=== PATIENT | male | born 1995 | race Caucasian/White ===

== ENCOUNTER 2016-09-20 23:48 | Emergency (ER) | payer OTHER ==
[~2016-09-20] VITALS: Ht 177.8 cm; Wt 81.4 kg
[2016-09-21] MEDS ORDERED: KETOROLAC 30 MG/1 ML ONE (00:16)
[2016-09-21] MEDS ORDERED: KETOROLAC 30 MG/1 ML IM ONE (00:30)
[2016-09-21] MEDS ORDERED: BACITRACIN ZINC OINT 500U/GM, 0.9 GM ONE (00:51)
[2016-09-21] MEDS ORDERED: COCAINE TOPICAL SOLN 4%, 4ML ONE (01:08)
[2016-09-21] MEDS ORDERED: COCAINE TOPICAL SOLN 4%, 4ML TP ONE (01:30)
[2016-09-21 01:58] VITALS: BP 144/77
== END 2016-09-21 01:59 | disposition home or self-care (01) ==
LOC: ED 09-21 00:02
DX: S02.2XXA Fracture of nasal bones, initial encounter for closed fracture (principal); Y04.8XXA Assault by other bodily force, initial encounter; Y93.89 Activity, other specified; Y92.89 Other specified places as the place of occurrence of the external cause; Y99.8 Other external cause status
CPT/HCPCS: 70160; 96372; 99284; J1885

== ENCOUNTER 2016-09-27 06:23 | Emergency (ER) | payer SELFPAY ==
[~2016-09-27] VITALS: Ht 180.3 cm; Wt 79.3 kg
[2016-09-27 06:25] VITALS: BP 128/86
[2016-09-27] MEDS ORDERED: OXYcodone/APAP 5/325MG TABLET PO ONE (07:00)
[2016-09-27] MEDS ORDERED: OXYcodone/APAP 5/325MG TABLET ONE (07:22)
== END 2016-09-27 07:51 | disposition home or self-care (01) ==
LOC: ED 07:30
DX: S02.2XXA Fracture of nasal bones, initial encounter for closed fracture (principal); Y04.0XXA Assault by unarmed brawl or fight, initial encounter; Y93.89 Activity, other specified; Y92.89 Other specified places as the place of occurrence of the external cause; Y99.8 Other external cause status; Z87.891 Personal history of nicotine dependence
CPT/HCPCS: 70486; 99284

== ENCOUNTER 2016-12-28 02:28 | Emergency (ER) | payer MEDICAID ==
[~2016-12-28] VITALS: Ht 180.3 cm; Wt 78.5 kg
[2016-12-28] MEDS ORDERED: LORazepam 1MG TABLET ONE (03:19)
[2016-12-28] MEDS ORDERED: LORazepam 1MG TABLET PO ONE (03:30)
[2016-12-28 03:37] VITALS: BP 144/87
== END 2016-12-28 03:38 | disposition home or self-care (01) ==
LOC: ED 03:17
DX: L90.5 Scar conditions and fibrosis of skin (principal); F15.10 Other stimulant abuse, uncomplicated
CPT/HCPCS: 93005; 99283

== ENCOUNTER 2017-02-06 05:44 | Emergency (ER) | payer MEDICAID ==
[~2017-02-06] VITALS: Ht 177.8 cm; Wt 78.0 kg
[2017-02-06 05:45] VITALS: BP 126/80
== END 2017-02-06 06:44 | disposition home or self-care (01) ==
LOC: ED 06:25
DX: M79.672 Pain in left foot (principal); K64.4 Residual hemorrhoidal skin tags
CPT/HCPCS: 99283

== ENCOUNTER 2017-04-20 12:11 | Emergency (ER) | payer MEDICAID ==
[~2017-04-20] VITALS: Ht 177.8 cm; Wt 89.4 kg
[2017-04-20 12:18] VITALS: BP 124/74
== END 2017-04-20 14:37 | disposition left against medical advice (07) ==
LOC: ED 13:24
DX: F15.10 Other stimulant abuse, uncomplicated (principal); Z59.0 Homelessness; F90.9 Attention-deficit hyperactivity disorder, unspecified type
CPT/HCPCS: 99281

== ENCOUNTER 2017-04-27 00:26 | Emergency (ER) | payer MEDICAID ==
[~2017-04-27] VITALS: Ht 177.8 cm; Wt 87.0 kg
[2017-04-27 00:30] VITALS: BP 130/82
== END 2017-04-27 02:19 | disposition home or self-care (01) ==
LOC: ED 01:04
DX: J01.10 Acute frontal sinusitis, unspecified (principal); J00 Acute nasopharyngitis [common cold]; F15.10 Other stimulant abuse, uncomplicated; F90.9 Attention-deficit hyperactivity disorder, unspecified type
CPT/HCPCS: 71020; 93005; 99284

== ENCOUNTER 2019-06-24 05:05 | Emergency (ER) | payer MEDICAID ==
[~2019-06-24] VITALS: Ht 177.8 cm; Wt 98.5 kg
[2019-06-24 05:07] VITALS: BP 145/94
--- NOTE | 2019-06-24 06:01 | NUR ---
PT D/C WITH D/C SUMMARY AND SCRIPTS. ALL QUESTIONS ANSWERED. PT AMBULATES TO LOBBY WITH STEADY GAIT AND PROVIDED A BUS PASS PER REQUEST. PT DENIES ANY OTHER NEEDS PERTAINING TO THIS VISIT.
== END 2019-06-24 06:04 | disposition home or self-care (01) ==
LOC: ED 05:30
DX: L03.114 Cellulitis of left upper limb (principal)
CPT/HCPCS: 99283

== ENCOUNTER 2019-09-27 00:54 | Emergency (ER) | payer MEDICAID ==
[~2019-09-27] VITALS: Ht 177.8 cm; Wt 80.7 kg
[2019-09-27 00:56] VITALS: BP 135/71
--- NOTE | 2019-09-27 01:08 | NUR ---
ASSESSMENT MADE. CHART UP FOR MD TO SEE.
--- NOTE | 2019-09-27 01:12 | NUR ---
PA AT BEDSIDE.
--- NOTE | 2019-09-27 01:40 | NUR ---
NO MEDICATION GIVEN. NO EAR INFECTION PER PA. PATIENT DISCHARGED WITH PRESCRIPTION AND INSTRUCTION. REFUSED TO SIGN DISCHARGE PAPERS.
== END 2019-09-27 01:43 | disposition home or self-care (01) ==
LOC: ED 01:32
DX: F15.159 Other stimulant abuse with stimulant-induced psychotic disorder, unspecified (principal)
CPT/HCPCS: 99282

== ENCOUNTER 2019-10-02 08:53 | Emergency (ER) | payer MEDICAID ==
[~2019-10-02] VITALS: Ht 170.2 cm; Wt 75.0 kg
--- NOTE | 2019-10-02 08:58 | NUR ---
IS AT THE BEDSIDE
--- NOTE | 2019-10-02 09:05 | NUR ---
ASHWINI (RN) IS ASSUMING CARE OF THIS PT AT THIS TIME. SBAR WAS EXCHANGED AT THE BEDSIDE
[2019-10-02] MEDS ORDERED: LORazepam 1MG TABLET ONE (09:13)
--- NOTE | 2019-10-02 09:18 | NUR ---
report received from LOUISA Chappell, pt is a&o, resps even and unlabored, sinus tach rate 100s on campus monitor with no ectopy. pt medicated per emar, tolerated well. awaiting meal tray arrival at this time.
[2019-10-02] MEDS ORDERED: LORazepam 1MG TABLET PO ONE (09:30)
[2019-10-02 09:51] VITALS: BP 137/70
--- NOTE | 2019-10-02 09:52 | NUR ---
pt provided with meal tray
--- NOTE | 2019-10-02 10:50 | NUR ---
meal tray consumed, pt given dc instructions by task LOUISA Chappell, pt ambulatory to dc with steady gait.
== END 2019-10-02 10:51 | disposition home or self-care (01) ==
LOC: ED 09:46
DX: F11.20 Opioid dependence, uncomplicated (principal); F15.20 Other stimulant dependence, uncomplicated; H10.022 Other mucopurulent conjunctivitis, left eye; Z72.9 Problem related to lifestyle, unspecified; Z59.0 Homelessness
CPT/HCPCS: 99282

== ENCOUNTER 2019-10-17 23:58 | Emergency (ER) | payer MEDICAID ==
[~2019-10-17] VITALS: Ht 180.3 cm; Wt 84.7 kg
--- NOTE | 2019-10-18 00:07 | NUR ---
CALLED PT NAME IN LOBBY, NO PT
[2019-10-18 00:15] VITALS: BP 116/70
--- NOTE | 2019-10-18 00:24 | NUR ---
Patient presents to ER c/o "infection in lungs," which he thinks he has because he has been having "dark green lugies." Patient states he has had fever and cough. Patient also c/o right toe cut. Patient admits to using heroin and meth daily along with multiple other drugs daily.
== END 2019-10-18 01:01 | disposition home or self-care (01) ==
LOC: ED 10-18 00:28
DX: S90.411A Abrasion, right great toe, initial encounter (principal); R05 Cough; F17.210 Nicotine dependence, cigarettes, uncomplicated; F10.10 Alcohol abuse, uncomplicated; F15.10 Other stimulant abuse, uncomplicated; Z72.9 Problem related to lifestyle, unspecified; Y90.0 Blood alcohol level of less than 20 mg/100 ml; X58.XXXA Exposure to other specified factors, initial encounter; Y93.89 Activity, other specified; Y92.89 Other specified places as the place of occurrence of the external cause; Y99.8 Other external cause status
CPT/HCPCS: 71046; 99283

== ENCOUNTER 2019-10-26 02:47 | Emergency (ER) | payer MEDICAID ==
[~2019-10-26] VITALS: Ht 177.8 cm; Wt 81.6 kg
[2019-10-26 02:49] VITALS: BP 123/81
== END 2019-10-26 03:25 | disposition home or self-care (01) ==
LOC: ED 03:22
DX: L03.113 Cellulitis of right upper limb (principal); F11.129 Opioid abuse with intoxication, unspecified; F14.10 Cocaine abuse, uncomplicated; F15.129 Other stimulant abuse with intoxication, unspecified; F17.200 Nicotine dependence, unspecified, uncomplicated
CPT/HCPCS: 99283

== ENCOUNTER 2019-12-19 02:44 | Emergency (ER) | payer MEDICAID ==
[~2019-12-19] VITALS: Ht 177.8 cm; Wt 75.0 kg
[2019-12-19] MEDS ORDERED: LORazepam 1MG TABLET ONE (03:15)
[2019-12-19] MEDS ORDERED: LORazepam 1MG TABLET PO ONE (03:30)
[2019-12-19 04:04] VITALS: BP 133/78
--- NOTE | 2019-12-19 04:38 | NUR ---
PT UP TO RESTROOM.
== END 2019-12-19 05:03 | disposition home or self-care (01) ==
LOC: ED 03:14
DX: F15.10 Other stimulant abuse, uncomplicated (principal); F11.10 Opioid abuse, uncomplicated; F41.9 Anxiety disorder, unspecified; Z72.9 Problem related to lifestyle, unspecified
CPT/HCPCS: 99283

== ENCOUNTER 2020-01-05 00:37 | Emergency (ER) | payer MEDICAID ==
[~2020-01-05] VITALS: Ht 177.8 cm; Wt 75.8 kg
[2020-01-05 00:41] VITALS: BP 121/65
[2020-01-05] MEDS ORDERED: HALOPERIDOL 5 MG/ML ONE (01:02)
--- NOTE | 2020-01-05 01:11 | NUR ---
PT BEHAVING BIZARRELY. CAN'T STOP MOVING, RANDOM VERBAL OUTBURSTS. PT ADMITS TO METH USE "10 MINUTES AGO". ALSO ADMITS TO HEROIN USE 8x/DAY. PT EMOTIONALLY LABILE, HAS MANY MANY VARIED COMPLAINTS THROUGHOUT BODY. SOME SPEECH UNINTELLIGIBLE OR DISJOINTED TO THE POINT OF NOT MAKING SENSE. HISTORY FILLED OUT BEST POSSIBLE. HALDOL GIVEN IM PER ORDERS. PT PROVIDED WITH ICE WATER PER REQUEST. DENIES ANY FURTHER NEEDS. CALL LIGHT IN REACH.
[2020-01-05] MEDS ORDERED: HALOPERIDOL 5 MG/ML IM ONE (01:30)
--- NOTE | 2020-01-05 01:31 | NUR ---
PT PROVIDED WITH CRACKERS PER REQUEST. UPON ENTERING ROOM, PT SEEN TO BE SCRUBBING HIS SKIN WITH THE HYDROGEN PEROXIDE WIPES IN ROOM. PT EDUCATED ON USE OF WIPES, AND INAPPROPRIATENESS OF CURRENT JOB. PT STATES "IT FEELS NICE" AND CONTINUES TO SCRUB HIMSELF. WIPES REMOVED FROM ROOM. CALL LIGHT IN REACH.
== END 2020-01-05 02:02 | disposition home or self-care (01) ==
LOC: ED 01:22
DX: F15.129 Other stimulant abuse with intoxication, unspecified (principal); R51 Headache; R44.1 Visual hallucinations; F17.200 Nicotine dependence, unspecified, uncomplicated; Z72.9 Problem related to lifestyle, unspecified
CPT/HCPCS: 96372; 99283; J1630

== ENCOUNTER 2020-01-13 08:53 | Emergency (ER) | payer MEDICAID ==
[~2020-01-13] VITALS: Ht 175.3 cm; Wt 70.0 kg
[2020-01-13 08:57] VITALS: BP 129/78
--- NOTE | 2020-01-13 09:05 | NUR ---
PA AT BEDSIDE. PT STATES HE DOES NOT WANT ATIVAN TO HELP HIM FEEL BETTER BECAUSE HE CANNOT HAVE BENZOS IN HIS SYSTEM FOR COURT.
--- NOTE | 2020-01-13 09:12 | NUR ---
PT UOB AND ATTEMPTING TO GET HYDROGEN PEROXIDE WIPES TO CLEAN SUPERFICIAL WOUNDS. PT REMOVED HIMSELF FROM MONITOR AND TETHERED TO IT BY BP AND PULSE OX CABLES. REMOVED SAME AND PUT RAIL DOWN PT WILL NOT STAY IN [facility]. PT GIVEN WASHCLOTHS AND SOAP AND AT SINK CLEANING WOUNDS.
--- NOTE | 2020-01-13 09:46 | NUR ---
PT REDIRECTED FROM SINK IT IS NEAR OVERFLOWING. PT WET HIS WHOLE BODY WITH WATER. PT THEN TO BATHROOM NEARBY AND CALLING STAFF "BITCH." SECURITY CALLED. PT GIVEN DISCHARGE PAPER AND TO BE WALKED OFF CAMPUS BY SECURITY
[2020-01-14] MEDS ORDERED: ATOM40CA7 PO (10:36)
[2020-01-14] MEDS ORDERED: QUET200T4 PO (10:36)
== END 2020-01-13 09:50 | disposition home or self-care (01) ==
LOC: ED 09:18
DX: F15.10 Other stimulant abuse, uncomplicated (principal); F11.10 Opioid abuse, uncomplicated; F41.9 Anxiety disorder, unspecified; R00.0 Tachycardia, unspecified
CPT/HCPCS: 99283

== ENCOUNTER 2020-01-14 10:21 | Emergency (ER) | payer MEDICAID ==
[~2020-01-14] VITALS: Ht 177.8 cm; Wt 79.0 kg
--- NOTE | 2020-01-14 10:32 | NUR ---
AMBULAORY TO ED ROOM 5, CARRYING EXTRA LARGE DUFFLE BAG. C/O RT HAND WOUND - "CUT WITH A MACHETE" "ABOUT THREE OF DAYS AGO". C/O RT UPPER JAW PAIN.
[2020-01-14] MEDS ORDERED: ATOM40CA7 PO (10:36)
[2020-01-14] MEDS ORDERED: QUET200T4 PO (10:36)
--- NOTE | 2020-01-14 11:53 | NUR ---
SITTING QUIETLY ON GURNEY, RESP EVEN & UNLABORED.
[2020-01-14 12:25] VITALS: BP 129/66
== END 2020-01-14 12:28 | disposition home or self-care (01) ==
LOC: ED 11:44
DX: S61.411A Laceration without foreign body of right hand, initial encounter (principal); R05 Cough; K08.89 Other specified disorders of teeth and supporting structures; R50.9 Fever, unspecified; F17.200 Nicotine dependence, unspecified, uncomplicated; X58.XXXA Exposure to other specified factors, initial encounter; Y93.89 Activity, other specified; Y92.89 Other specified places as the place of occurrence of the external cause; Y99.8 Other external cause status
CPT/HCPCS: 71045; 99283

== ENCOUNTER 2020-02-17 08:46 | Emergency (ER) | payer MEDICAID ==
[~2020-02-17] VITALS: Ht 177.8 cm; Wt 68.0 kg
[~2020-02-17 08:46] MED LIST: ATOM40CA7 PO; QUET200T4 PO
[2020-02-17] MEDS ORDERED: ZIPRASIDONE 20 MG INJ IM ONE ×3 (08:48→10:00)
[2020-02-17] MEDS ORDERED: LORazepam 2 MG/ML, 1ML ONE (08:57)
[2020-02-17] MEDS: LORazepam 2 MG/ML, 1ML IM PRN ×2 (09:03→10:27)
--- NOTE | 2020-02-17 09:10 | NUR ---
PATIENT BIB [facility] WITH CHIEF C/O MULTIPLE DRUGS. PER EMS PATIENT WAS NEAR [facility] AND THEY WERE ABLE TO BRING HIM INSIDE AND CALLED EMS. EMS STATES PATIENT REPORTED TAKING METH, HEROIN, BENZOS, AND MDMDA. PATIENT GIVEN 10 MG HALDOL EN ROUTE, PATIENT WRITHING IN BED, NOT COMBATIVE, ABLE TO COMMUNICATE, BUT UNABLE TO CONTROL BODY MOVEMENTS. CONNECTED TO TELEMARKETER, SEIZURE PRECAUTIONS IN PLACE. PATIENT GIVEN 20 MG GEODON IM AND 2 MG ATIVAN IM, 20 GAUGE IV STARTED RFA. PATIENT NOW RESTING IN [facility],EYES CLOSED, 1 LITER BOLUS STARTED, AND CONDOM CATHETER IN PLACE.
[2020-02-17] MEDS ORDERED: PLEASE ENTER HEIGHT AND WEIGHT MC SCH (09:30)
--- NOTE | 2020-02-17 09:39 | NUR ---
THIS RN MEDICATED PATIENT WITH 20MG GEODON IM IN THE RIGHT DELTOID AT THE EMERGENT BEDSIDE ORDER OF DR. SILVA HE WAS VERY AGITATED WITH VERBAL OUTBURSTS. AFTER ADMINISTRATION OF MEDICATION, THIS RN OPENED UP [employer] TO DOCUMENT THE MED AND LEARNED THAT GEODON WAS ON PATIENT'S ALLERGY LIST. DR. SILVA ASKED THE PATIENT ABOUT THE GEODON ALLERGY AND HE STATED, "IT KILLS ME" UPON FURTHER INQUIRY, ELLA STATED, "IT MAKES IT TWICE WORSE." HOWEVER, AFTER ADMINISTRATION, NO ALLERGIC REACTION WAS NOTED AND GEODON BEGAN TO WORK VERY WELL FOR PATIENTS ACUTE AGITATION, TARYN WITH EXPLOSIVE VERBAL OUTBURSTS. 2MG IM ATIVAN WAS ALSO GIVEN. ELLA BEGAN TO CALM DOWN NICELY AND WAS PLACED ON THE CONTINUOUS CARDIAC AND SPO2 MONITORS. VS ARE STABLE AND THERE ARE NO ILL EFFECTS AT THE TIME OF THIS NOTE. WILL CONTINUE TO MONITOR. PATIENT IS SLEEPING AT THIS TIME AND IS DOING WELL. NS BOLUS HUNG AND CONDOM CATHETER APPLIED TO DRAINAGE BAG.
[2020-02-17] MEDS ORDERED: LORazepam 2 MG/ML, 1ML IM PRN (10:00)
--- NOTE | 2020-02-17 10:11 | NUR ---
PATIENT TO IMAGING.
[2020-02-17 10:21] LABS: BASOPHILS # (AUTO) 0.03 x10^3/uL (0-0.1); BASOPHILS % (AUTO) 0 % (0-1); EOSINOPHILS # (AUTO) 0.08 x10^3/uL (0-0.4); EOSINOPHILS % (AUTO) 1 % (1-7); LYMPHOCYTES # (AUTO) 1.74 x10^3/uL (1-3.4); LYMPHOCYTES % (AUTO) 26 % (22-44); MD NO; MEAN CORPUSCULAR HEMOGLOBIN 29.1 pg (27.5-34.5); MEAN CORPUSCULAR HGB CONC 32.9 g/dL (33.2-36.2); MONOCYTES # (AUTO) 0.97 x10^3/uL (0.2-0.8); MONOCYTES % (AUTO) 15 % (2-9); NEUTROPHILS # (AUTO) 3.85 x10^3/uL (1.8-6.8); NEUTROPHILS % (AUTO) 58 % (42-75); PLATELET COUNT 219 x10^3/uL (130-400); RED BLOOD COUNT 4.39 x10^6/uL (4.38-5.82); RED CELL DISTRIBUTION WIDTH 14.5 % (9.4-14.8)
[2020-02-17] MEDS ORDERED: SODIUM CHLORIDE 0.9% 1,000ML IVBOLUS ONE (10:30)
--- NOTE | 2020-02-17 10:32 | NUR ---
PT BACK FROM CT SCAN. NS BOLUS COMPLETE. HEART RATE NORMAL NOW. VS UPDATED. PT SLEEPING.
--- NOTE | 2020-02-17 10:33 | NUR ---
OXYGEN DECREASED FROM 2LPM DOWN TO 1LPM SPO2 IS 100%.
[2020-02-17 10:44] LABS: ALANINE AMINOTRANSFERASE 79 U/L (12-78); ALBUMIN 3.7 g/dL (3.4-5.0); ANION GAP 8 mmol/L (5-15); CALCIUM 8.9 mg/dL (8.5-10.1); CHLORIDE 106 mmol/L (98-107); CREATININE 0.75 mg/dL (0.7-1.3)
[2020-02-17 10:50] LABS: ALKALINE PHOSPHATASE 106 U/L (45-117); BILIRUBIN,TOTAL 1.2 mg/dL (0.2-1.0); CREATINE KINASE, TOTAL 282 U/L (39-308); TOTAL PROTEIN 7.6 g/dL (6.4-8.2)
[2020-02-17 10:51] LABS: SALICYLATE LEVEL < 1.7 mg/dL (2.8-20.0)
--- NOTE | 2020-02-17 11:55 | NUR ---
BREAK RN: PATIENT RESTING COMFORTABLY. NO NEEDS AT THIS TIME.
--- NOTE | 2020-02-17 13:45 | NUR ---
PATIENT RESTING IN GURNEY WITH EYES CLOSED, CONNECTED TO EXCHANGE CLERK, NO ACUTE SIGNS OF DISTRESS.
--- NOTE | 2020-02-17 14:07 | NUR ---
TRIED TO WAKE PATIENT UP, UNABLE TO AROUSE AT THIS TIME, INFORMED MD, CONNECTED TO SPOOL MAKER, VITAL SIGNS WITHIN NORMAL LIMITS.
--- NOTE | 2020-02-17 16:03 | NUR ---
PATIENT LYING IN GURNEY WITH EYES CLOSED, CONNECTED TO ROTARY CUTTER OPERATOR, VITAL SIGNS WITHIN NORMAL LIMITS, SEIZURE PRECAUTIONS IN PLACE, CALL LIGHT WITHIN REACH.
--- NOTE | 2020-02-17 17:12 | NUR ---
PATIENT LYING IN GURNEY WITH EYES CLOSED, CONNECTED TO SOLAR ENERGY TECHNICIAN, VITAL SIGNS WITHIN NORMAL LIMITS, SEIZURE PRECAUTIONS IN PLACE. ABLE TO WEAN PATIENT DOWN TO RA FROM 1 LPM NC, O2 SATS 100%.
--- NOTE | 2020-02-17 17:56 | NUR ---
PATIENT MORE AROUSABLE, PROVIDED SPRITE, PATIENT ABLE TO DRINK WITHOUT ISSUE. ORDERED PATIENT DINNER TRAY. PATIENT STATES HE IS UNABLE TO URINATE AT THIS TIME.
--- NOTE | 2020-02-17 18:25 | NUR ---
PATIENT SITTING UP IN GURNEY, EATING DINNER, NO ACUTE SIGNS OF DISTRESS, CONNECTED TO HORSE FARM MANAGER, SEIZURE PRECAUTIONS IN PLACE.
--- NOTE | 2020-02-17 18:42 | NUR ---
ASKED PATIENT TO GET DRESSED, PATIENT STATES HE IS TOO "WEAK TO WALK" RIGHT NOW AND ASKS TO WAIT AND GET DRESSED AFTER HIS DINNER SETTLES AND HE HAS MORE ENERGY.
--- NOTE | 2020-02-17 18:49 | NUR ---
BEDSIDE REPORT FROM SALINA JASSO, PT CARE TRANSFERRED AT THIS TIME. PT RESTING ON GURNEY, VSS, NAD, SKIN WARM AND DRY, PT APPEARS COMFORTABLE, STATES HE IS STILL "REALLY TIRED", RN INFORMED PT THAT HE WONT BE ABLE TO SLEEP HERE ALL NIGHT AND WILL HAVE TO CONTINUE SLEEPING IT OFF AT HOME EVENTUALLY. PT CALL LIGHT ON BED. DENIES ADDITIONAL NEEDS AT THIS TIME. WCTM. MTF
[2020-02-17 19:29] VITALS: BP 118/58
--- NOTE | 2020-02-17 19:31 | NUR ---
rn to pt bs, rn provided pt his clothes to get dress, pt nad, states "i dont have a home" and when asked where he wants to go pt states "[place]." Pt stating that "i am so weak feeling, im going to pass out the moment i hit the door". RN observed to ambulating steadily. WCTM. pt to be DC'd.
--- NOTE | 2020-02-17 20:06 | NUR ---
Patient given discharge instructions and they have confirmed that they understand the instructions. Patient ambulatory with steady gait. PT PROVIDED 6 CRACKER PACKETS BY THIS RN APPROXIMATELY 20 MINUTES AGO, PT AGGITATED THAT THIS RN REFUSES TO GIVE HIM MORE CRACKERS AT THIS TIME. PT GIVEN TAXI VOUCHER, NAD, DENIES ADDITIONAL QUESTIONS OR DESIRE TO STOP USING DRUGS AT THIS TIME DESPITE DISCUSSING RISKS WITH THIS RN. PT RAN SMOOTHLY OUT OF ED WITH DC PAPERS AND TAXI VOUCHER.
== END 2020-02-17 20:10 | disposition home or self-care (01) ==
LOC: ED 13:25
DX: F11.10 Opioid abuse, uncomplicated (principal); F06.8 Other specified mental disorders due to known physiological condition; F15.10 Other stimulant abuse, uncomplicated; F13.10 Sedative, hypnotic or anxiolytic abuse, uncomplicated; F22 Delusional disorders; R45.1 Restlessness and agitation; Z88.9 Allergy status to unspecified drugs, medicaments and biological substances; Z79.899 Other long term (current) drug therapy
CPT/HCPCS: 36415; 70450; 71045; 80053; 80307; 82140; 82550; 85025; 96360; 96372; 99285; J2060; J3486; J7030

== ENCOUNTER 2020-03-29 00:17 | Emergency (ER) | payer MEDICAID ==
[~2020-03-29] VITALS: Ht 180.3 cm; Wt 81.2 kg
[2020-03-29 00:27] VITALS: BP 120/80
--- NOTE | 2020-03-29 01:28 | NUR ---
pt was found in the lobby drinking alcohol, escorted out by security.
== END 2020-03-29 01:29 | disposition left against medical advice (07) ==
LOC: ED 01:00
DX: L03.114 Cellulitis of left upper limb (principal); Z53.21 Procedure and treatment not carried out due to patient leaving prior to being seen by health care provider

== ENCOUNTER 2020-04-03 21:07 | Emergency (ER) | payer MEDICAID ==
[~2020-04-03] VITALS: Ht 180.3 cm; Wt 80.1 kg
--- NOTE | 2020-04-03 21:57 | NUR ---
pt to room from lobby
--- NOTE | 2020-04-03 22:20 | NUR ---
THIS RN ENTERED ROOM; PT. HAD ABOUT 15 HYDROGEN PEROXIDE WIPES AND WAS CLEANING HIS BODY/FACE WITH THEM. EDUCATED PT. ABOUT NOT USING THESE WIPES ON HIS SKIN AND HE STATES "THEY FEEL GOOD AND I WILL USE THEM IF I WANT." OFFERED PT. WASHCLOTH BUT HE DECLINED. DR. ROBLES TO BS TO EVAL PT. AND DISCUSS POC.
[2020-04-03 22:25] VITALS: BP 117/69
--- NOTE | 2020-04-03 22:56 | NUR ---
DR. ROBLES BACK IN TO DISCUSS D/C PLAN WITH PT.
== END 2020-04-03 23:29 | disposition home or self-care (01) ==
LOC: ED 22:00
DX: F11.229 Opioid dependence with intoxication, unspecified (principal); R59.1 Generalized enlarged lymph nodes; Z72.9 Problem related to lifestyle, unspecified; F15.129 Other stimulant abuse with intoxication, unspecified; F17.210 Nicotine dependence, cigarettes, uncomplicated
CPT/HCPCS: 99406

== ENCOUNTER 2020-07-10 09:37 | Emergency (ER) | payer MEDICAID ==
[~2020-07-10] VITALS: Ht 177.8 cm; Wt 85.0 kg
--- NOTE | 2020-07-10 09:45 | NUR ---
THIS IS A 25 YO M BIB EMS FROM HOME W/ C/O DRY COUGH AND PHLEGM X1 DAY. PT ALSO CONCERNED THAT HE MAY HAVE AN STD. PT REPORTS USING METH AND HEROIN 1 HOUR VISUAL MERCHANDISING COORDINATOR. PT REPORTS TAKING BACTRIM AND DOXY FOR LIP INFECTION. PT TACHYCARDIC AND HYPERTENSIVE, OTHER VS WDL. PT RESTING ON GURNEY W/ CALL LIGHT IN REACH AND SIDE RAILS UPX2. RESP EVEN AND UNLABORED, JOSE ALFREDO.
--- NOTE | 2020-07-10 09:47 | NUR ---
REPORT GIVEN TO SAQIB JASSO.
--- NOTE | 2020-07-10 09:47 | NUR ---
PT ALSO REPORTS LT LEG PAIN WHILE STRETCHING.
[2020-07-10] MEDS ORDERED: LORazepam 1MG TABLET PO ONE (10:00)
[2020-07-10] MEDS ORDERED: AZITHROMYCIN 500 MG TABLET PO ONE (10:00)
[2020-07-10] MEDS ORDERED: BICILLIN-LA 2,400,000 UNITS/4 ML IM ONE (10:00)
[2020-07-10] MEDS ORDERED: CEFTRIAXONE 250 MG IM ONE (10:00)
[2020-07-10] MEDS ORDERED: AZITHROMYCIN 500 MG TABLET ONE (10:01)
[2020-07-10] MEDS ORDERED: CEFTRIAXONE 250 MG ONE (10:01)
[2020-07-10] MEDS ORDERED: LORazepam 1MG TABLET ONE (10:02)
--- NOTE | 2020-07-10 10:02 | NUR ---
TASK RN: EDVIN COLLECTED
--- NOTE | 2020-07-10 10:11 | NUR ---
PT MEDICATED PER MAR
[2020-07-10 10:40] VITALS: BP 114/65
--- NOTE | 2020-07-10 10:40 | NUR ---
PT RESTING IN [facility]. AWAITING LAB RESULTS
== END 2020-07-10 11:31 | disposition home or self-care (01) ==
LOC: ED 10:26
DX: B34.9 Viral infection, unspecified (principal); Z20.822 Contact with and (suspected) exposure to COVID-19; F15.129 Other stimulant abuse with intoxication, unspecified; F11.129 Opioid abuse with intoxication, unspecified; F17.210 Nicotine dependence, cigarettes, uncomplicated
CPT/HCPCS: 71045; 87491; 87591; 87635; 96372; 99284; 99406; J0561; J0696; 99285

== ENCOUNTER 2020-07-13 00:39 | Emergency (ER) | payer MEDICAID ==
[~2020-07-13] VITALS: Ht 172.7 cm; Wt 70.0 kg
[2020-07-13 00:48] VITALS: BP 143/89
--- NOTE | 2020-07-13 03:27 | NUR ---
pt upset about discharge, pt upset and requesting abx. spoke with erp, pt does not hve reason for abx, and told pt. pt cussed at erp and then security was called to escort patient out. pt refusing vitals as well.
== END 2020-07-13 03:30 | disposition home or self-care (01) ==
LOC: ED 01:21
DX: F15.10 Other stimulant abuse, uncomplicated (principal); R00.2 Palpitations; R20.9 Unspecified disturbances of skin sensation; I51.7 Cardiomegaly; H92.02 Otalgia, left ear
CPT/HCPCS: 93005; 99283

== ENCOUNTER 2020-10-14 04:45 | Emergency (ER) | payer MEDICAID ==
[~2020-10-14] VITALS: Ht 177.8 cm; Wt 88.5 kg
--- NOTE | 2020-10-14 04:48 | NUR ---
pt in bathroom
[2020-10-14 04:51] VITALS: BP 137/88
[2020-10-14] MEDS ORDERED: LIDOCAINE-MPF 1%, 5ML ONE (05:11)
--- NOTE | 2020-10-14 06:06 | NUR ---
PT NOT IN LOBBY WHEN CALLED FOR ROOM.
--- NOTE | 2020-10-14 06:19 | NUR ---
PT NOT IN LOBBY WHEN CALLED FOR ROOM.
--- NOTE | 2020-10-14 06:27 | NUR ---
PT NOT IN LOBBY WHEN CALLED FOR ROOM. PT LWBS.
== END 2020-10-14 06:29 | disposition left against medical advice (07) ==
LOC: ED 06:23
DX: L02.415 Cutaneous abscess of right lower limb (principal); Z53.21 Procedure and treatment not carried out due to patient leaving prior to being seen by health care provider

== ENCOUNTER 2020-10-14 19:03 | Emergency (ER) | payer MEDICAID ==
[~2020-10-14] VITALS: Ht 177.8 cm; Wt 90.5 kg
[2020-10-14 19:06] VITALS: BP 132/78
[2020-10-14] MEDS ORDERED: LIDOCAINE-MPF 1%, 5ML INFIL ONE (19:30)
--- NOTE | 2020-10-14 22:32 | NUR ---
CARE ASSUMED FOR DC. PT DC'D HOME WITH RX X 2 AND UNDERSTANDING OF INSTRUCTIONS. PT TO DC, GAIT STEADY.
== END 2020-10-14 22:34 | disposition home or self-care (01) ==
LOC: ED 20:04
DX: L02.413 Cutaneous abscess of right upper limb (principal); F17.210 Nicotine dependence, cigarettes, uncomplicated; Z72.9 Problem related to lifestyle, unspecified; L03.114 Cellulitis of left upper limb; F11.20 Opioid dependence, uncomplicated
CPT/HCPCS: 10061; 99284; 99285; 99406

== ENCOUNTER 2020-10-30 15:48 | Emergency (ER) | payer MEDICAID ==
[~2020-10-30] VITALS: Ht 175.3 cm; Wt 92.5 kg
--- NOTE | 2020-10-30 16:55 | NUR ---
PT BACK TO ROOM AT THIS TIME.
[2020-10-30] MEDS ORDERED: LIDOCAINE-MPF 1%, 5ML INFIL ONE (17:00)
[2020-10-30] MEDS ORDERED: LIDOCAINE-MPF 1%, 5ML ONE (17:09)
[2020-10-30 17:37] LABS: BASOPHILS % (AUTO) 0 % (0-1); EOSINOPHILS % (AUTO) 1 % (1-7); LYMPHOCYTES % (AUTO) 21 % (22-44); MEAN CORPUSCULAR HEMOGLOBIN 29.5 pg (27.5-34.5); MEAN PLATELET VOLUME 7.8 fL (7.4-10.4); MONOCYTES % (AUTO) 14 % (2-9); NEUTROPHILS % (AUTO) 63 % (42-75); PLATELET COUNT 188 x10^3/uL (130-400); RED BLOOD COUNT 4.16 x10^6/uL (4.38-5.82); RED CELL DISTRIBUTION WIDTH 12.8 % (9.4-14.8)
[2020-10-30 17:47] LABS: MD NO
[2020-10-30 17:48] LABS: ANION GAP 5 mmol/L (5-15); CALCIUM 8.7 mg/dL (8.5-10.1); CHLORIDE 106 mmol/L (98-107); CREATININE 0.68 mg/dL (0.7-1.3)
--- NOTE | 2020-10-30 19:00 | NUR ---
TATY REDD: RECEIVED REPORT FROM LOUISA HERNANDEZ TO ASSUME CARE OF PT. PT. TO HAVE I&D.
[2020-10-30] MEDS ORDERED: NEOSPORIN OINT. PKT 1 PACKET ONE ×2 (19:30→20:01)
--- NOTE | 2020-10-30 19:59 | NUR ---
I&D WAS COMPLETED. PT. I&D SITE CONTINUING TO DRAIN AND PER DR. ARROYO WARM COMPRESS TO BE PLACED UNTIL BLEEDING SLOWS DOWN. AT THIS TIME READY FOR DRESSING. PT. PROVIDED D/C INSTRUCITONS. PT. ABLE TO FULLY DRESS SELF AND AMBULATE TO D/C DESK WITH STEADY GAIT.
[2020-10-30 20:01] VITALS: BP 127/77
== END 2020-10-30 20:10 | disposition home or self-care (01) ==
LOC: ED 18:27
DX: L02.414 Cutaneous abscess of left upper limb (principal); F11.10 Opioid abuse, uncomplicated; F90.9 Attention-deficit hyperactivity disorder, unspecified type
CPT/HCPCS: 10060; 36415; 80048; 85025

== ENCOUNTER 2020-11-16 06:19 | Emergency (ER) | payer MEDICAID ==
[~2020-11-16] VITALS: Ht 154.9 cm; Wt 93.0 kg
[2020-11-16 06:27] VITALS: BP 113/68
--- NOTE | 2020-11-16 06:49 | NUR ---
Report to Love JASSO
--- NOTE | 2020-11-16 06:51 | NUR ---
REPORT FROM HENRY, ASSUME CARE OF PT AT THIS TIME.
[2020-11-16] MEDS ORDERED: LIDOCAINE-MPF 1%, 5ML INFIL ONE (07:00)
[2020-11-16] MEDS ORDERED: LIDOCAINE-MPF 1%, 5ML ONE (07:01)
== END 2020-11-16 08:00 | disposition home or self-care (01) ==
LOC: ED 06:38
DX: L02.413 Cutaneous abscess of right upper limb (principal); F17.200 Nicotine dependence, unspecified, uncomplicated; Z88.2 Allergy status to sulfonamides
CPT/HCPCS: 10060; 99283

== ENCOUNTER 2020-11-19 00:07 | Emergency (ER) | payer MEDICAID ==
[~2020-11-19] VITALS: Ht 177.8 cm; Wt 91.4 kg
[2020-11-19 00:10] VITALS: BP 130/88
--- NOTE | 2020-11-19 00:17 | NUR ---
PT REFUSING TO GO IN ROOM. PT ADVISED THAT IT IS THE ROOM WE HAVE AVAILIBLE AT THIS TIME. PT NOW AGREABLE TO GO IN ROOM. AT BEDSIDE
--- NOTE | 2020-11-19 00:22 | NUR ---
PT YELLING AT STAFF AND BEING AGRESSIVE. SECURITY CALLED TO ASSIST PT.
--- NOTE | 2020-11-19 00:23 | NUR ---
BREAK RN: WENT IN TO ROOM TO ASSES PT, AFTER HE REFUSED TO GO INTO THE ROOM, STATING THAT HE HAD SOME "BAD SHIT" HAPPEN TO HIM IN THAT ROOM. PT INFORMED KINDLY THAT THAT WAS HIS ROOM, AND THAT WE ARE NOT KEEPING HIM HERE AND HE IS FREE TO GO IF HE IS REFUSING CARE. PT THEN WENT IN THE ROOM, AND WAS BELLIGERANT WITH THE STAFF AND NOT ANSWERING QUESTIONS ON ASSESMENT. MD BROUGHT TO THE ROOM SO TO MOVE THE TREATMENT FORWARD AND HELP THE PT. PT WAS RUDE WITH THE MD DEMANDING "LIQUID" ANTIBIOTICS. WHEN EXPLAINED BY THE MD THAT HE WAS HAPPY TO PRESCRIBE MORE ANTIBIOTICS, THE PT BECAME MORE BELLIGERANT AND STATED HE NEEDED LIQUID ANTIBIOTICS THAT GO IN THRU IV. PT NOT COMPLYING WITH MD. MD STEPPED OUT AFTER ASSESMENT TO WORK ON CHART. PT THEN BEGAN CUSSING AT THE RN, AND STATING THAT WE WEREN'T "SHIT", AND THAT HE FELT SORRY FOR "YOUR MOTHERS". SECURITY WAS CALLED BY SOUND TESTER AND PT SAID HE'S LEAVING. PT EXITED WHILE YELLING AND CUSSING AT THE STAFF. PT ELOPED AT THIS TIME WITH SECURITY ESCORTING HIM OUT HE TURNED AND BECAME CONFRONTATIONAL WITH THE RN.
== END 2020-11-19 00:29 | disposition left against medical advice (07) ==
LOC: ED 00:20
DX: L03.311 Cellulitis of abdominal wall (principal); F17.210 Nicotine dependence, cigarettes, uncomplicated; Z72.9 Problem related to lifestyle, unspecified; F90.9 Attention-deficit hyperactivity disorder, unspecified type
CPT/HCPCS: 99406

== ENCOUNTER 2021-02-16 11:09 | Emergency (ER) | payer MEDICAID ==
[~2021-02-16] VITALS: Ht 177.8 cm; Wt 87.9 kg
[2021-02-16 11:14] VITALS: BP 130/87
[2021-02-16 12:42] LABS: BASOPHILS % (AUTO) 1 % (0-1); EOSINOPHILS % (AUTO) 3 % (1-7); LYMPHOCYTES % (AUTO) 22 % (22-44); MEAN CORPUSCULAR HEMOGLOBIN 27.5 pg (27.5-34.5); MEAN CORPUSCULAR HGB CONC 33.6 g/dL (33.2-36.2); MEAN PLATELET VOLUME 7.6 fL (7.4-10.4); MONOCYTES % (AUTO) 13 % (2-9); NEUTROPHILS % (AUTO) 62 % (42-75); PLATELET COUNT 276 x10^3/uL (130-400); RED BLOOD COUNT 4.55 x10^6/uL (4.38-5.82); RED CELL DISTRIBUTION WIDTH 15.2 % (9.4-14.8)
[2021-02-16 12:50] LABS: ALBUMIN 3.4 g/dL (3.4-5.0); ANION GAP 6 mmol/L (5-15); CALCIUM 9.1 mg/dL (8.5-10.1); CHLORIDE 102 mmol/L (98-107); CREATININE 0.76 mg/dL (0.7-1.3)
--- NOTE | 2021-02-16 18:00 | NUR ---
[id number]
--- NOTE | 2021-02-16 18:45 | NUR ---
NILx2
--- NOTE | 2021-02-16 19:04 | NUR ---
TASK RN: NO ANSWER X3 TO TRIAGE FROM LOBBY
== END 2021-02-16 19:25 | disposition left against medical advice (07) ==
LOC: ED 11:09
DX: L03.114 Cellulitis of left upper limb (principal)
CPT/HCPCS: 36415; 80048; 82040; 85025; 99284

== ENCOUNTER 2021-02-17 18:12 | Emergency (ER) | payer MEDICAID ==
[~2021-02-17] VITALS: Ht 177.8 cm; Wt 91.4 kg
[2021-02-17] MEDS ORDERED: DIPH,PERTUSS(ACELL),TET VAC/PF 0.5 ML IM-VACC ONE (19:00)
[2021-02-17] MEDS ORDERED: LIDOCAINE 1%-EPI 1:100K, 20ML SQ ONE (19:00)
[2021-02-17] MEDS ORDERED: LIDOCAINE-MPF 1%, 5ML ONE (22:16)
--- NOTE | 2021-02-17 22:40 | NUR ---
wound dressed and cleaned prior to discharge
[2021-02-17 22:45] VITALS: BP 113/64
--- NOTE | 2021-02-17 22:46 | NUR ---
Patient/Caregiver given discharge instructions and they have confirmed that they understand the instructions. Patient ambulatory with steady gait. NAD, all questions answered appropriately, denies additional needs at this time. No personal belongings left in room after discharge.
== END 2021-02-17 23:12 | disposition home or self-care (01) ==
LOC: ED 18:30
DX: L02.414 Cutaneous abscess of left upper limb (principal); L03.114 Cellulitis of left upper limb; F17.210 Nicotine dependence, cigarettes, uncomplicated
CPT/HCPCS: 10060; 99283; 99406